=== PATIENT | male | born 1950 | race Caucasian/White ===

== ENCOUNTER 2024-07-08 07:55 | Day surgery (SDC) | payer MEDICARE, BC ==
[~2024-07-08] VITALS: Ht 182.9 cm; Wt 97.7 kg
[~2024-07-08 07:55] MED LIST: APIX5TAB3 PO; ATOR20TA66 PO; FLEC100T2 PO; FLO0.4C PO; LISI-643 PO
[2024-07-08 08:14] VITALS: BP 157/76; PULSE 91; RESP 19; TEMP 98.5
[2024-07-08] MEDS ORDERED: propofol inj 20 ML IV ONE (09:45)
[2024-07-08] MEDS ORDERED: midazolam 1 mg/ML 2ml injection ONE (09:46)
[2024-07-08 10:12] VITALS: BP 105/66; PULSE 51; RESP 18; O2SAT 93
[2024-07-08 10:20] VITALS: BP 110/69; PULSE 51; RESP 12; O2SAT 97
[2024-07-08 10:30] VITALS: BP 124/72; PULSE 52; RESP 12; O2SAT 97
[2024-07-08 10:40] VITALS: BP 124/73; PULSE 66; RESP 11; O2SAT 98
== END 2024-07-08 10:55 | disposition home or self-care (01) ==
LOC: GI LAB 07:55
PROVIDERS: ATTEND Internal Medicine Gastroenterology
DX: Z12.11 Encounter for screening for malignant neoplasm of colon (principal); K64.8 Other hemorrhoids; E78.5 Hyperlipidemia, unspecified; I48.91 Unspecified atrial fibrillation; Z88.0 Allergy status to penicillin; Z79.899 Other long term (current) drug therapy; Z86.73 Personal history of transient ischemic attack (TIA), and cerebral infarction without residual deficits
CPT/HCPCS: A4620; G0121; J2250; J2704; J7030; Z7512; 45380; 88305